=== PATIENT | female | born 1955 | race Caucasian/White ===

== ENCOUNTER 2023-08-08 09:28 | Inpatient (IN) | payer OTHER ==
[~2023-08-08] VITALS: Ht 162.6 cm; Wt 90.7 kg
[2023-08-08] VITALS (10 sets, daily range): BP systolic 114–116; BP diastolic 70–79; PULSE 89–109; RESP 18–23; TEMP 97–98.7; O2SAT 96–98
[2023-08-08] MEDS ORDERED: PANTOPRAZOLE 40 MG INJ VIAL IVP ONE (09:50)
[2023-08-08 10:29] LABS: BASOPHILS # (AUTO) 0.1 K/uL (0.00-0.22); BASOPHILS % (AUTO) 0.7 % (0.0-2.0); EOSINOPHILS # (AUTO) 0.1 K/uL (0-0.4); EOSINOPHILS % (AUTO) 0.5 % (0.0-4.0); HEMATOCRIT 42.6 % (36-48); HEMOGLOBIN 14.2 g/dL (12.0-16.0); LYMPHOCYTES # (AUTO) 2.3 K/uL (2.5-16.5); LYMPHOCYTES % (AUTO) 14.1 % (20.5-51.1); MEAN CORPUSCULAR HEMOGLOBIN 31 pg (27-31); MEAN CORPUSCULAR HGB CONC 33 g/dL (33-37); MEAN CORPUSCULAR VOLUME 93.7 fL (80-94); MONOCYTES # (AUTO) 1.5 K/uL (0.8-1.0); MONOCYTES % (AUTO) 9.2 % (1.7-9.3); NEUTROPHILS # (AUTO) 12.5 K/uL (1.8-7.7); NEUTROPHILS % (AUTO) 75.5 % (42.2-75.2); PLATELET COUNT (AUTO) 393 K/uL (140-450); RED BLOOD CELL COUNT(AUTO) 4.55 MIL/uL (4.20-5.40); RED CELL DISTRIBUTION WIDTH 14.7 % (11.6-13.7); WHITE BLOOD COUNT (AUTO) 16.5 K/uL (4.8-10.8)
[2023-08-08 11:18] LABS: INR 1.31 (0.8-1.2); PROTHROMBIN TIME 13.5 secs (10.8-13.4)
[2023-08-08 11:19] LABS: ANION GAP 13.8 (8-16); CALCIUM 9.3 mg/dL (8.5-10.1); CARBON DIOXIDE 25.2 mmol/L (21-32); CREATININE 0.7 mg/dL (0.6-1.3)
[2023-08-08 11:23] LABS: ALANINE AMINOTRANSFERASE 16 U/L (12-78); ALBUMIN 2.4 g/dL (3.4-5.0); ALKALINE PHOSPHATASE 106 U/L (50-136); ASPARTATE AMINOTRANSFERASE 24 U/L (15-37); BILIRUBIN,DIRECT 0.2 mg/dL (0.0-0.3); TOTAL BILIRUBIN 1.4 mg/dL (0.0-1.0); TOTAL PROTEIN, SERUM 7.7 g/dL (6.4-8.2)
[2023-08-08] MEDS ORDERED: LEVOFLOXACIN 500 MG/D5W PREMIX 100 ML IV ONE (11:40)
[2023-08-08] MEDS ORDERED: NACL 0.9% 1,000 ML IV ONE (11:40)
[2023-08-08] MEDS ORDERED: ASPIRIN 81 MG TAB.CHEW PO ONE (11:45)
[2023-08-08] MEDS ORDERED: POTASSIUM CHLORIDE 10 MEQ TABER PO ONE (12:00)
[2023-08-08] MEDS ORDERED: ONDANSETRON 4 MG/2 ML VIAL IVP PRN (12:35)
[2023-08-08] MEDS ORDERED: ACETAMINOPHEN 325 MG TAB PO PRN (12:35)
[2023-08-08 13:17] LABS: LACTIC ACID 1.3 mmol/L (0.4-2.0)
[2023-08-08] MEDS ORDERED: VENL-152 PO (15:58)
[2023-08-08] MEDS ORDERED: ARIP2TAB16 PO (15:58)
[2023-08-08] MEDS ORDERED: LAMO25TA6 PO (15:58)
[2023-08-08] MEDS ORDERED: LEVO0.0211 PO (15:58)
[2023-08-08] MEDS ORDERED: cefTRIAXone 1,000 MG VIAL ONE (16:20)
[2023-08-08 21:43] LABS: FLU A ANTIGEN negative (NEGATIVE); FLU B ANTIGEN NEGATIVE (NEGATIVE)
[2023-08-08] MEDS: FUROSEMIDE 20 MG/2 ML VIAL IVP SCH (21:51)
[2023-08-09] VITALS (10 sets, daily range): BP systolic 107–153; BP diastolic 62–93; PULSE 72–116; RESP 20–26; TEMP 97.6–99; O2SAT 93–99
[2023-08-09] MEDS: ALBUTEROL 0.083% 2.5 MG/3 ML NEBU INH PRN (00:08)
[2023-08-09] MEDS ORDERED: MILD SOAP AND WATER TP PRN (05:25)
[2023-08-09] MEDS ORDERED: Z-GUARD PASTE TP PRN (05:25)
[2023-08-09 07:04] LABS: BASOPHILS # (AUTO) 0.1 K/uL (0.00-0.22); BASOPHILS % (AUTO) 0.4 % (0.0-2.0); EOSINOPHILS # (AUTO) 0.1 K/uL (0-0.4); EOSINOPHILS % (AUTO) 0.4 % (0.0-4.0); HEMATOCRIT 40.2 % (36-48); HEMOGLOBIN 13.5 g/dL (12.0-16.0); LYMPHOCYTES # (AUTO) 2.2 K/uL (2.5-16.5); MEAN CORPUSCULAR HEMOGLOBIN 31 pg (27-31); MEAN CORPUSCULAR HGB CONC 34 g/dL (33-37); MEAN CORPUSCULAR VOLUME 93.4 fL (80-94); MONOCYTES # (AUTO) 1.8 K/uL (0.8-1.0); MONOCYTES % (AUTO) 11.2 % (1.7-9.3); NEUTROPHILS # (AUTO) 11.5 K/uL (1.8-7.7); PLATELET COUNT (AUTO) 411 K/uL (140-450); RED BLOOD CELL COUNT(AUTO) 4.31 MIL/uL (4.20-5.40); RED CELL DISTRIBUTION WIDTH 15.1 % (11.6-13.7); WHITE BLOOD COUNT (AUTO) 15.6 K/uL (4.8-10.8)
[2023-08-09 07:34] LABS: ALBUMIN 2.1 g/dL (3.4-5.0); CALCIUM 8.8 mg/dL (8.5-10.1); CARBON DIOXIDE 24.6 mmol/L (21-32); CREATININE 0.9 mg/dL (0.6-1.3); POTASSIUM 3.6 mmol/L (3.5-5.1); TOTAL BILIRUBIN 0.8 mg/dL (0.0-1.0)
[2023-08-09] MEDS: ASPIRIN 81 MG TAB.CHEW PO SCH (09:54)
[2023-08-09] MEDS: FUROSEMIDE 20 MG/2 ML VIAL IVP SCH (09:55)
[2023-08-09] MEDS: ENOXAPARIN 40 MG/0.4 ML SYR SUBQ SCH (09:56)
[2023-08-09] MEDS ORDERED: AZITHROMYCIN 500 MG INJ VIAL IV ONE (22:57)
[2023-08-09] MEDS: AZITHROMYCIN 500 MG in DEXTROSE 5% 250 ML IV SCH (23:16)
[2023-08-10] VITALS (11 sets, daily range): BP systolic 115–135; BP diastolic 66–82; PULSE 80–118; RESP 18–39; TEMP 97–98.3; O2SAT 94–99
[2023-08-10] MEDS: ALBUTEROL 0.083% 2.5 MG/3 ML NEBU INH PRN (01:05)
[2023-08-10] MEDS: LEVOTHYROXINE 0.025 MG TAB PO SCH (05:52)
[2023-08-10 06:56] LABS: BASOPHILS # (AUTO) 0.2 K/uL (0.00-0.22); BASOPHILS % (AUTO) 1.1 % (0.0-2.0); EOSINOPHILS % (AUTO) 0.2 % (0.0-4.0); HEMATOCRIT 40.6 % (36-48); HEMOGLOBIN 13.5 g/dL (12.0-16.0); LYMPHOCYTES # (AUTO) 2.1 K/uL (2.5-16.5); LYMPHOCYTES % (AUTO) 13.5 % (20.5-51.1); MEAN CORPUSCULAR HEMOGLOBIN 31 pg (27-31); MEAN CORPUSCULAR HGB CONC 33 g/dL (33-37); MEAN CORPUSCULAR VOLUME 94.6 fL (80-94); MONOCYTES # (AUTO) 1.5 K/uL (0.8-1.0); MONOCYTES % (AUTO) 9.5 % (1.7-9.3); NEUTROPHILS # (AUTO) 11.9 K/uL (1.8-7.7); NEUTROPHILS % (AUTO) 75.7 % (42.2-75.2); PLATELET COUNT (AUTO) 403 K/uL (140-450); RED BLOOD CELL COUNT(AUTO) 4.29 MIL/uL (4.20-5.40); RED CELL DISTRIBUTION WIDTH 15.3 % (11.6-13.7); WHITE BLOOD COUNT (AUTO) 15.7 K/uL (4.8-10.8)
[2023-08-10 07:23] LABS: ALBUMIN 2.1 g/dL (3.4-5.0); CALCIUM 9.1 mg/dL (8.5-10.1); CARBON DIOXIDE 28.5 mmol/L (21-32); POTASSIUM 3.5 mmol/L (3.5-5.1); TOTAL BILIRUBIN 1.1 mg/dL (0.0-1.0); TOTAL PROTEIN, SERUM 8.2 g/dL (6.4-8.2)
[2023-08-10] MEDS: ASPIRIN 81 MG TAB.CHEW PO SCH (09:57)
[2023-08-10] MEDS: VENLAFAXINE XR 75 MG CAPER PO SCH (09:57)
[2023-08-10] MEDS: lamoTRIgine 25 MG TAB PO SCH (09:58)
[2023-08-10] MEDS: ARIPiprazole 10 MG TAB PO SCH (10:00)
[2023-08-10] MEDS: ENOXAPARIN 40 MG/0.4 ML SYR SUBQ SCH (10:09)
[2023-08-10] MEDS ORDERED: Z-GUARD PASTE TP PRN (11:50)
[2023-08-10] MEDS ORDERED: NYSTATIN POW 100 MU/GM 15 GM BTL TP PRN (11:50)
[2023-08-10] MEDS ORDERED: FOAM DRESSING TP PRN (11:50)
[2023-08-10] MEDS: FOAM DRESSING TP SCH (13:09)
[2023-08-10] MEDS: Z-GUARD PASTE TP SCH (13:16)
[2023-08-10] MEDS: NYSTATIN POW 100 MU/GM 15 GM BTL TP SCH (13:16)
[2023-08-10] MEDS: AZITHROMYCIN 500 MG in DEXTROSE 5% 250 ML IV SCH (20:43)
[2023-08-11] VITALS (12 sets, daily range): BP systolic 95–129; BP diastolic 67–81; PULSE 74–98; RESP 18–20; TEMP 97–98; O2SAT 95–100
[2023-08-11] MEDS: Z-GUARD PASTE TP SCH ×2 (00:57→13:00)
[2023-08-11] MEDS: NYSTATIN POW 100 MU/GM 15 GM BTL TP SCH ×2 (00:57→13:00)
[2023-08-11] MEDS: LEVOTHYROXINE 0.025 MG TAB PO SCH (05:49)
[2023-08-11] MEDS: ENOXAPARIN 40 MG/0.4 ML SYR SUBQ SCH (09:22)
[2023-08-11] MEDS: lamoTRIgine 25 MG TAB PO SCH (09:24)
[2023-08-11] MEDS: VENLAFAXINE XR 75 MG CAPER PO SCH (09:25)
[2023-08-11] MEDS: ARIPiprazole 10 MG TAB PO SCH (09:25)
[2023-08-11] MEDS: ASPIRIN 81 MG TAB.CHEW PO SCH (09:25)
[2023-08-11] MEDS: FOAM DRESSING TP SCH (13:00)
[2023-08-11] MEDS: AZITHROMYCIN 500 MG in DEXTROSE 5% 250 ML IV SCH (20:47)
[2023-08-12] VITALS (8 sets, daily range): BP systolic 100–119; BP diastolic 53–77; PULSE 79–94; RESP 17–20; TEMP 97.5–98; O2SAT 98–100
[2023-08-12] MEDS: NYSTATIN POW 100 MU/GM 15 GM BTL TP SCH ×2 (01:09→13:51)
[2023-08-12] MEDS: Z-GUARD PASTE TP SCH ×2 (01:09→13:51)
[2023-08-12] MEDS: LEVOTHYROXINE 0.025 MG TAB PO SCH (05:38)
[2023-08-12 06:34] LABS: ANION GAP 11.8 (8-16); CALCIUM 9.2 mg/dL (8.5-10.1); CARBON DIOXIDE 28.7 mmol/L (21-32); CREATININE 0.7 mg/dL (0.6-1.3); POTASSIUM 3.5 mmol/L (3.5-5.1)
[2023-08-12 06:39] LABS: BASOPHILS # (AUTO) 0.1 K/uL (0.00-0.22); BASOPHILS % (AUTO) 0.8 % (0.0-2.0); EOSINOPHILS # (AUTO) 0.2 K/uL (0-0.4); EOSINOPHILS % (AUTO) 1.7 % (0.0-4.0); HEMATOCRIT 38.5 % (36-48); HEMOGLOBIN 12.8 g/dL (12.0-16.0); LYMPHOCYTES # (AUTO) 1.8 K/uL (2.5-16.5); LYMPHOCYTES % (AUTO) 18.4 % (20.5-51.1); MEAN CORPUSCULAR HEMOGLOBIN 31 pg (27-31); MEAN CORPUSCULAR HGB CONC 33 g/dL (33-37); MEAN CORPUSCULAR VOLUME 94.3 fL (80-94); MONOCYTES % (AUTO) 10.1 % (1.7-9.3); NEUTROPHILS # (AUTO) 6.6 K/uL (1.8-7.7); PLATELET COUNT (AUTO) 401 K/uL (140-450); RED BLOOD CELL COUNT(AUTO) 4.09 MIL/uL (4.20-5.40); WHITE BLOOD COUNT (AUTO) 9.6 K/uL (4.8-10.8)
[2023-08-12] MEDS: ASPIRIN 81 MG TAB.CHEW PO SCH (09:53)
[2023-08-12] MEDS: ARIPiprazole 10 MG TAB PO SCH (09:53)
[2023-08-12] MEDS: VENLAFAXINE XR 75 MG CAPER PO SCH (09:53)
[2023-08-12] MEDS: lamoTRIgine 25 MG TAB PO SCH (09:54)
[2023-08-12] MEDS: ENOXAPARIN 40 MG/0.4 ML SYR SUBQ SCH (09:57)
[2023-08-12] MEDS: FOAM DRESSING TP SCH (13:51)
[2023-08-12] MEDS: AZITHROMYCIN 500 MG in DEXTROSE 5% 250 ML IV SCH (21:06)
[2023-08-13 01:22] VITALS: O2SAT 97
[2023-08-13] MEDS: NYSTATIN POW 100 MU/GM 15 GM BTL TP SCH ×2 (01:22→13:00)
[2023-08-13] MEDS: Z-GUARD PASTE TP SCH ×2 (01:23→13:00)
[2023-08-13 03:55] VITALS: O2SAT 100
[2023-08-13 04:00] VITALS: BP 111/75; PULSE 82; RESP 18; TEMP 97.6; O2SAT 97
[2023-08-13] MEDS: LEVOTHYROXINE 0.025 MG TAB PO SCH (06:39)
[2023-08-13 07:09] LABS: ANION GAP 9.8 (8-16); CALCIUM 9.3 mg/dL (8.5-10.1); CARBON DIOXIDE 31.7 mmol/L (21-32); CREATININE 0.7 mg/dL (0.6-1.3); POTASSIUM 3.5 mmol/L (3.5-5.1)
[2023-08-13 09:14] LABS: BASOPHILS # (AUTO) 0.1 K/uL (0.00-0.22); BASOPHILS % (AUTO) 1.2 % (0.0-2.0); EOSINOPHILS # (AUTO) 0.2 K/uL (0-0.4); EOSINOPHILS % (AUTO) 2.8 % (0.0-4.0); HEMATOCRIT 38.6 % (36-48); HEMOGLOBIN 12.7 g/dL (12.0-16.0); LYMPHOCYTES # (AUTO) 1.7 K/uL (2.5-16.5); MEAN CORPUSCULAR HEMOGLOBIN 32 pg (27-31); MEAN CORPUSCULAR HGB CONC 33 g/dL (33-37); MEAN CORPUSCULAR VOLUME 95.4 fL (80-94); MONOCYTES # (AUTO) 0.9 K/uL (0.8-1.0); MONOCYTES % (AUTO) 10.7 % (1.7-9.3); NEUTROPHILS # (AUTO) 5.7 K/uL (1.8-7.7); NEUTROPHILS % (AUTO) 65.3 % (42.2-75.2); PLATELET COUNT (AUTO) 422 K/uL (140-450); RED BLOOD CELL COUNT(AUTO) 4.05 MIL/uL (4.20-5.40); RED CELL DISTRIBUTION WIDTH 14.6 % (11.6-13.7); WHITE BLOOD COUNT (AUTO) 8.7 K/uL (4.8-10.8)
[2023-08-13] MEDS: VENLAFAXINE XR 75 MG CAPER PO SCH (10:03)
[2023-08-13] MEDS: ARIPiprazole 10 MG TAB PO SCH (10:04)
[2023-08-13] MEDS: ASPIRIN 81 MG TAB.CHEW PO SCH (10:04)
[2023-08-13] MEDS: lamoTRIgine 25 MG TAB PO SCH (10:04)
[2023-08-13] MEDS: ENOXAPARIN 40 MG/0.4 ML SYR SUBQ SCH (10:10)
[2023-08-13] MEDS: FOAM DRESSING TP SCH (13:00)
[2023-08-13] MEDS ORDERED: MYCPWD TP (13:42)
[2023-08-13] MEDS ORDERED: ROC1PM IV (13:42)
[2023-08-13] MEDS ORDERED: ACET-1182 PO (13:42)
[2023-08-13] MEDS ORDERED: ASPI81CT95 PO (13:42)
[2023-08-13] MEDS ORDERED: LOV40I SUBQ (13:42)
== END 2023-08-13 16:10 | DRG 280 ==
LOC: MED 09:28 → MTU 12:43 → MED 12:43 → MTU 18:49
PROVIDERS: ADMIT Internal Medicine; ATTEND Internal Medicine
PROC: 5A09357 Assistance with Respiratory Ventilation, Less than 24 Consecutive Hours, Continuous Positive Airway Pressure (ICD-10-PCS; principal; 2023-08-11)
DX: I50.21 Acute systolic (congestive) heart failure (principal); J18.9 Pneumonia, unspecified organism; I21.A1 Myocardial infarction type 2; J96.00 Acute respiratory failure, unspecified whether with hypoxia or hypercapnia; E87.1 Hypo-osmolality and hyponatremia; R65.10 Systemic inflammatory response syndrome (SIRS) of non-infectious origin without acute organ dysfunction; R53.1 Weakness; E66.9 Obesity, unspecified; Z68.34 Body mass index [BMI] 34.0-34.9, adult; I49.5 Sick sinus syndrome; E87.6 Hypokalemia; Z95.0 Presence of cardiac pacemaker
CPT/HCPCS: 36415; 71045; 80048; 80053; 80076; 82948; 83605; 83735; 83880; 84443; 84484; 85025; 85610; 85730; 86886; 86900; 86901; 87040; 87081; 93005; 94640; 94660; 96365; 96375; 97110; 97112; 97163-GP; 97530; 99291; C9113; J0456; J0696; J1650; J1940; J1956; J7060; J7613